=== PATIENT | female | born 1945 | race Caucasian/White ===

== ENCOUNTER → 2017-09-30 | Outpatient (CLI) | payer MEDICARE, BC | END | disposition home or self-care (01) | LOC: LABWHC1 09:33 | PROVIDERS: ATTEND Family Medicine | DX: E87.5 Hyperkalemia (principal) | CPT/HCPCS: 36415; 84132 ==

== ENCOUNTER → 2018-01-17 | Outpatient (CLI) | payer MEDICARE, BC ==
--- NOTE | 2018-01-17 14:08 | XR ---
EXAMINATION TYPE: XR thoracic spine complete DATE OF EXAM: 01/17/2018 CLINICAL HISTORY: pain TECHNIQUE: Frontal, lateral, and swimmer's view of thoracic spine are obtained. COMPARISON: None. FINDINGS: Severe scoliotic curvature convex to the right with rotatory component. Loss of height invo lving several lower thoracic segments likely chronic in nature although indeterminant. No bony destru ctive process seen. Moderate to severe degenerative disc space narrowing and spondylosis. IMPRESSION: Severe rotoscoliosis thoracic spine with loss of vertebral body height at multiple lower levels of indeterminate age. Superimposed degenerative changes noted as well.
== END | disposition home or self-care (01) ==
LOC: RADXRYALE 13:41
PROVIDERS: ATTEND Nurse Practitioner Family
DX: M41.84 Other forms of scoliosis, thoracic region (principal); M47.814 Spondylosis without myelopathy or radiculopathy, thoracic region; M25.512 Pain in left shoulder
CPT/HCPCS: 72072

== ENCOUNTER → 2018-09-18 | Outpatient (CLI) | payer MEDICARE, BC ==
--- NOTE | 2018-09-18 16:51 | BD ---
EXAMINATION TYPE: Axial Bone Density DATE OF EXAM: 09/18/2018 COMPARISON: 2014 CLINICAL HISTORY: disorder of bone Height: 4'11 10/11 Weight: 164 FRAX RISK QUESTIONS: Family History (Parent hip fracture): y Secondary Osteoporosis: RISK FACTORS HISTORY OF: Postmenopausal woman: y MEDICATIONS: Prednisone or other steroids: Thyroid Medications: Which medication: Levothyroxine How Lon years Additional Medications: blood pressure, arthritis, Additional History: EXAM MEASUREMENTS: Bone mineral densitometry was performed using the Selleroutlet System. Bone mineral density as measured about the Lumbar spine is: ----- L1-L4(G/cm2): 1.338 T Score Values are as follows: ----- L2: 1.9 ----- L3: 1.9 ----- L4: 1.1 ----- L1-L4:1.3 Bone mineral density has: Decreased -1.4% since study of: )06/02/2015 Bone mineral density about the R hip (g/cm2): 0.828 Bone mineral density about the L hip (g/cm2): 0.831 T Score values are as follows: -----R Neck: -1.5 -----L Neck: -1.5 -----R Total: -0.8 -----L Total: -1.3 Bone mineral density has: Increased 3.6% since study of: 06/02/2015 IMPRESSION: Osteopenia (T Score between -2.5 and -1). There is slightly increased risk of fracture and the patient may be considered for treatment. Re-Screen 2-5 years. NOTE: T-SCORE=SD OF THE YOUNG ADULT MEAN.
--- NOTE | 2018-09-19 10:49 | MM ---
Reason for exam: screening (asymptomatic). Last mammogram was performed 2 years and 1 month ago. History: Patient is postmenopausal. Family history of breast cancer in daughter at age 54. Benign excisional biopsy of the right breast. Physical Findings: A clinical breast exam by your physician is recommended on an annual basis and results should be correlated with mammographic findings. MG 3D Screening Mammo W/Cad Bilateral CC and MLO view(s) were taken. Prior study comparison: August 06, 2016, bilateral MG screening mammo w CAD. June 02, 2015, bilateral MG screening mammo w CAD. There are scattered fibroglandular densities. There are benign appearing round vascular calcifications bilaterally. There is no discrete abnormality. ASSESSMENT: Benign, BI-RAD 2 RECOMMENDATION: Routine screening mammogram of both breasts in 1 year.
== END | disposition home or self-care (01) ==
LOC: RADMAMWWP 14:09
PROVIDERS: ATTEND Family Medicine
DX: Z12.31 Encounter for screening mammogram for malignant neoplasm of breast (principal); M85.851 Other specified disorders of bone density and structure, right thigh; M85.852 Other specified disorders of bone density and structure, left thigh; M85.89 Other specified disorders of bone density and structure, multiple sites
CPT/HCPCS: 77063; 77067; 77080

== ENCOUNTER → 2020-07-11 | Outpatient (CLI) | payer MEDICARE ==
--- NOTE | 2020-07-14 08:50 | MM ---
Reason for exam: screening (asymptomatic). Last mammogram was performed 1 year and 10 months ago. History: Patient is postmenopausal. Family history of breast cancer in daughter at age 54. Benign excisional biopsy of the right breast. Took estrogen for 6 months beginning at age 48. Physical Findings: A clinical breast exam by your physician is recommended on an annual basis and results should be correlated with mammographic findings. MG 3D Screening Mammo W/Cad Bilateral CC and MLO view(s) were taken. Prior study comparison: September 18, 2018, bilateral MG 3d screening mammo w/cad. August 06, 2016, bilateral MG screening mammo w CAD. The breast tissue is heterogeneously dense. This may lower the sensitivity of mammography. Benign calcifications. There is chronic nodularity in the right breast, stable. No significant changes when compared with prior studies. ASSESSMENT: Benign, BI-RAD 2 RECOMMENDATION: Routine screening mammogram of both breasts in 1 year.
== END | disposition home or self-care (01) ==
LOC: RADMAMWWP 10:45
PROVIDERS: ATTEND Family Medicine
DX: Z12.31 Encounter for screening mammogram for malignant neoplasm of breast (principal)
CPT/HCPCS: 77063; 77067

== ENCOUNTER 2021-12-18 07:01 | Inpatient (IN) | payer MEDICARE ==
[~2021-12-18 07:01] MED LIST: HEPARIN SODIUM,PORCINE 10,000 UNIT in SODIUM CHLORIDE 0.9% 1,000 ML IRRIGATION PRN; HEPARIN SODIUM,PORCINE 2,500 UNIT in SODIUM CHLORIDE 0.9% 250 ML IRRIGATION PRN
--- NOTE | 2021-12-18 07:14 | ED ---
General Adult HPI - General Stated complaint: Chest Pain Time Seen by Provider: 12/18/21 07:02 Source: RN notes reviewed - History of Present Illness Initial comments: Patient is a 76-year-old female presented to the emergency room today with chief complaint of chest pain. Patient does admit that she felt some discomfort starting yesterday in the morning. Patient does admit that she took aspirin. As the day went on she actually felt better. Patient states that pain seemed to return late last night. She states she still felt this this morning. Did take some aspirin again. She took 324 aspirin early this morning and then when her son came over. Full dose 325 mg aspirin that she was taken. She states she has no pain currently. The patient denies any other complaints or any other symptoms at this time. Patient denies any recent fever, chills, shortness of breath, back pain, abdominal pain, nausea or vomiting, numbness or tingling, headaches or visual changes, or any other complaints. - Related Data Allergies Allergy/AdvReac Type Severity Reaction Status Date / Time No Known Allergies Allergy Verified 12/18/21 08:37 Review of Systems ROS Statement: Those systems with pertinent positive or pertinent negative responses have been documented in the HPI. ROS Other: All systems not noted in ROS Statement are negative. General Exam - General Exam Comments Initial Comments: General: The patient is awake and alert, in no distress, and does not appear acutely ill. Eye: , extra-ocular movements are intact. No nystagmus. There is normal conjunctiva bilaterally. No signs of icterus. Ears, nose, mouth and throat: There are moist mucous membranes and no oral lesions. Neck: The neck is supple, there is no tenderness or JVD. Cardiovascular: There is a regular rate and rhythm. No murmur, rub or gallop is appreciated. Respiratory: Lungs are clear to auscultation, respirations are non-labored, breath sounds are equal. No wheezes, stridor, rales, or rhonchi. Gastrointestinal: Soft nontender. Musculoskeletal: Normal ROM, no tenderness. Strength 5/5. Sensation intact. Radial Pulses equal bilaterally 2+. Neurological: A&O x 3. CN II-XII intact, There are no obvious motor or sensory deficits. Coordination appears grossly intact. Speech is normal. Skin: Skin is warm and dry and no rashes or lesions are noted. Psychiatric: Cooperative, appropriate mood & affect, normal judgment. Course Vital Signs 12/18/21 12/18/21 07:14 07:45 Temperature 98.1 F 98.1 F Pulse Rate 84 72 Respiratory 18 15 Rate Blood Pressure 179/84 169/112 O2 Sat by Pulse 100 100 Oximetry EKG Findings - EKG Comments: EKG Findings:: EKG performed: 705. Normal sinus rhythm at 90 bpm. SD interval 151. QRS 85. QT/QTc 352/399. No acute ST changes. Medical Decision Making - Medical Decision Making Patient's EKG shows no acute changes. Her troponin was elevated at 0.670. Creatinine 1.23. Patient chest pain-free here in emergency room. She did take aspirin prior to coming to the ER. Patient will be started on heparin drip. She'll be admitted for an STEMI. Case was discussed with admitting physician Dr. Villanueva will admit the patient with consult cardiology. - Lab Data Result diagrams: 12/18/21 08:03 12/18/21 08:03 Lab Results 12/18/21 12/18/21 12/18/21 Range/Units 07:36 08:03 08:03 WBC 8.7 (3.8-10.6) k/uL RBC 4.39 (3.80-5.40) m/uL Hgb 14.1 (11.4-16.0) gm/dL Hct 41.6 (34.0-46.0) % MCV 94.7 (80.0-100.0) fL MCH 32.1 (25.0-35.0) pg MCHC 33.9 (31.0-37.0) g/dL RDW 12.5 (11.5-15.5) % Plt Count 313 (150-450) k/uL MPV 7.2 Neutrophils % 55 % Lymphocytes % 32 % Monocytes % 8 % Eosinophils % 3 % Basophils % 1 % Neutrophils # 4.8 (1.3-7.7) k/uL Lymphocytes # 2.8 (1.0-4.8) k/uL Monocytes # 0.7 (0-1.0) k/uL Eosinophils # 0.3 (0-0.7) k/uL Basophils # 0.1 (0-0.2) k/uL Sodium 134 L (137-145) mmol/L Potassium 4.2 (3.5-5.1) mmol/L Chloride 103 (98-107) mmol/L Carbon Dioxide 23 (22-30) mmol/L Anion Gap 8 mmol/L BUN 23 H (7-17) mg/dL Creatinine 1.23 H (0.52-1.04) mg/dL Est GFR (CKD-EPI)AfAm 49 (>60 ml/min/1.73 sqM) Est GFR (CKD-EPI)NonAf 42 (>60 ml/min/1.73 sqM) Glucose 97 (74-99) mg/dL Calcium 9.6 (8.4-10.2) mg/dL Magnesium 1.7 (1.6-2.3) mg/dL Total Bilirubin 0.5 (0.2-1.3) mg/dL AST 39 H (14-36) U/L ALT 21 (4-34) U/L Alkaline Phosphatase 122 (38-126) U/L Troponin I 0.670 H* (0.000-0.034) ng/mL Total Protein 7.6 (6.3-8.2) g/dL Albumin 4.2 (3.5-5.0) g/dL Disposition Clinical Impression: NSTEMI (non-ST elevated myocardial infarction) Disposition: ADMITTED IP TO THIS HOSP Condition: Stable Is patient prescribed a controlled substance at d/c from ED?: No Referrals: Rosaura Steven DO [Primary Care Provider] - 1-2 days
[2021-12-18 08:12] LABS: Basophils # (A) 0.1 k/uL (0-0.2); Basophils % (A) 1 %; Eosinophils # (A) 0.3 k/uL (0-0.7); Eosinophils % (A) 3 %; HCT 41.6 % (34.0-46.0); HGB 14.1 gm/dL (11.4-16.0); Lymphocytes # (A) 2.8 k/uL (1.0-4.8); Lymphocytes % (A) 32 %; MCH 32.1 pg (25.0-35.0); MCHC 33.9 g/dL (31.0-37.0); MCV 94.7 fL (80.0-100.0); Mean Platelet Volume 7.2; Monocytes # (A) 0.7 k/uL (0-1.0); Monocytes % (A) 8 %; Neutrophils # (A) 4.8 k/uL (1.3-7.7); Neutrophils % (A) 55 %; Platelet Count 313 k/uL (150-450); RBC 4.39 m/uL (3.80-5.40); RDW 12.5 % (11.5-15.5); WBC 8.7 k/uL (3.8-10.6)
[2021-12-18 08:22] LABS: Albumin 4.2 g/dL (3.5-5.0); Calcium 9.6 mg/dL (8.4-10.2); Magnesium 1.7 mg/dL (1.6-2.3); Potassium 4.2 mmol/L (3.5-5.1); Total Bilirubin 0.5 mg/dL (0.2-1.3); Total Protein 7.6 g/dL (6.3-8.2)
[2021-12-18] MEDS ORDERED: HEPARIN SODIUM 1,000 UN/ML (10ML VL) IV PRN (08:28)
[2021-12-18] MEDS ORDERED: HEPARIN SODIUM 1,000 UN/ML (10ML VL) IV ONE (08:28)
[2021-12-18] MEDS ORDERED: ASPIRIN 81 MG PO STA (08:43)
[2021-12-18] MEDS ORDERED: HEPARIN SOD,PORK IN 0.45% NACL 25,000 UNIT in 0.45% NACL 1 250ML.BAG IV SCH (08:45)
[2021-12-18] MEDS ORDERED: NALOXONE 0.4 MG/ML 1 ML VIAL IV PRN (08:46)
[2021-12-18 08:49] LABS: INR 0.9 (<1.2); Partial Thromboplastin Time 23.1 sec (22.0-30.0)
--- NOTE | 2021-12-18 08:50 | XR ---
EXAMINATION TYPE: XR chest 2V DATE OF EXAM: 12/18/2021 COMPARISON: None available HISTORY: Chest pain TECHNIQUE: Frontal and lateral views of the chest are obtained. FINDINGS: Slightly prominent interstitial lung markings which could be related to COPD, please correlate clinic ally. Left basal linear pulmonary atelectasis. Grossly unremarkable lungs otherwise. No sizable pleural effusion or definite pneumothorax. No gross cardiomegaly. Dextroscoliosis of the lower thoracic spine. IMPRESSION: Possible COPD changes. Linear left basal pulmonary atelectasis. No acute pulmonary abnormality identi fied otherwise.
[2021-12-18] MEDS: METOPROLOL TARTRATE 25 MG TAB PO SCH ×2 (08:52→20:15)
[2021-12-18] MEDS ORDERED: NITROGLYCERIN OINT 1 INCH/GM PACKET TOPICAL SCH (11:30)
--- NOTE | 2021-12-18 12:00 | ECHOF ---
Referral Reason:chest pain, elevated troponin MEASUREMENTS -------- HEIGHT: 152.4 cm WEIGHT: 72.6 kg BP: RVIDd: 2.7 cm (< 3.3) IVSd: 1.1 cm (0.6 - 1.1) LVIDd: 4.2 cm (3.9 - 5.3) LVPWd: 1.0 cm (0.6 - 1.1) IVSs: 1.3 cm LVIDs: 3.0 cm LVPWs: 1.5 cm LA Diam: 3.2 cm (2.7 - 3.8) LAESV Index (A-L): 24.53 ml/m Ao Diam: 2.6 cm (2.0 - 3.7) AV Cusp: 1.7 cm (1.5 - 2.6) MV EXCURSION: 11.540 mm (> 18.000) MV EF SLOPE: 74 mm/s (70 - 150) EPSS: 0.6 cm MV E Konstantin: 1.24 m/s MV DecT: 281 ms MV A Konstantin: 1.11 m/s MV E/A Ratio: 1.12 RAP: 5.00 mmHg RVSP: 47.29 mmHg FINDINGS -------- Sinus rhythm. This was a technically good study. The left ventricular size is normal. There is borderline concentric left ventricular hypertrophy. Overall left ventricular systolic function is normal with, an EF between 55 - 60 %. The right ventricle is normal in size. Normal LA size by volume 22+/-6 ml/m2. The right atrium is normal in size. Interatrial and interventricular septum intact. The aortic valve is trileaflet, and appears structurally normal. No aortic stenosis or regurgitation. The mitral valve leaflets are mildly thickened. Mild mitral annular calcification present. Modera [id number] mitral regurgitation is present. Mild tricuspid regurgitation present. There is moderate pulmonary hypertension. The right ventric ular systolic pressure, as measured by Doppler, is 47.29mmHg. Trace/mild (physiologic) pulmonic regurgitation. The aortic root size is normal. Normal inferior vena cava with normal inspiratory collapse consistent with estimated right atrial pre ssure of 5 mmHg. There is no pericardial effusion. CONCLUSIONS -------- 1. The left ventricular size is normal. 2. There is borderline concentric left ventricular hypertrophy. 3. Overall left ventricular systolic function is normal with, an EF between 55 - 60 %. 4. The mitral valve leaflets are mildly thickened. 5. Mild mitral annular calcification present. 6. Dimcuvsf-ky-klxewz mitral regurgitation is present. 7. Mild tricuspid regurgitation present. 8. There is moderate pulmonary hypertension. 9. The right ventricular systolic pressure, as measured by Doppler, is 47.29mmHg. 10. Trace/mild (physiologic) pulmonic regurgitation. 11. There is no pericardial effusion. SIMONIZER: Lakeisha Morgan RDCS
[2021-12-18] MEDS: ATORVASTATIN 80 MG TAB PO SCH (12:39)
[2021-12-18] MEDS ORDERED: NITROGLYCERIN SL TABS 0.4 MG TAB SUBLINGUAL PRN ×2 (13:23→14:52)
[2021-12-18] MEDS ORDERED: ALPRAZolam 0.5 MG TAB PO PRN (13:23)
--- NOTE | 2021-12-18 13:24 | P.CRDCN ---
History of Present Illness History of present illness: HISTORY OF PRESENTING ILLNESS This is a pleasant 76-year-old female past medical history significant for hypothyroidism, GERD, bilateral feet chilblains, osteopenia. She does not follow with a astrobiologist. We have been asked to see in consultation for NSTEMI. Patient presents to the ER with chest discomfort. Last night, prior to bed, patient had midsternal chest pain, radiating to her right shoulder, she states she "did not feel well". She thought it was acid reflux she took meloxicam and aspirin and went to bed. She woke up 12/18 this morning around 4:00AM with 8/10 chest discomfort, describes it as heaviness, as if "someone is sitting on my chest". It radiated to her right shoulder. She felt some mild shortness of breath. Denies nausea, diaphoresis, lightheadedness, dizziness, syncope or near syncope. She presented to the emergency room by family for further evaluation. She denies any history of CAD, AR, stroke, diabetes, hypertension. She denies any tobacco use or alcohol use. She states her chest pain resolved on its own, did not take nitro. DIAGNOSTICS EKG reveals sinus rhythm, heart rate 90, PAC, some mild ST depression in V4 through V6. No prior EKG to compare. Telemetry tracings indicate sinus mechanism Chest xray linear left basilar pulmonary atelectasis. No acute pulmonary abnormality. No overt failure Laboratory reviewed, troponin elevated 0.6, sodium 134, potassium 4.2, BUN 23, serum creatinine 1.2, CBC unremarkable Current cardiac medications include nifedipine 30 mg daily the patient states she started taking due to bilateral feet chilblains REVIEW OF SYSTEMS At the time of my exam: CONSTITUTIONAL: Denies fever or chills. CARDIOVASCULAR: +chest pain, +shortness of breath,Denies orthopnea, PND or palpitations. RESPIRATORY: Denies cough. GASTROINTESTINAL: Denies abdominal pain, diarrhea, constipation, nausea or vomiting. MUSCULOSKELETAL: Denies myalgias. NEUROLOGIC: Denies numbness, tingling, headacbe or weakness. ENDOCRINE: Denies fatigue, weight change, polydipsia or polyurina. GENITOURINARY: Denies burning, hematuria or urgency with micturation. HEMATOLOGIC: Denies history of anemia or bleeding. PHYSICAL EXAMINATION Blood pressure 161/85, heart rate 70, afebrile, saturations 96% on room air CONSTITUTIONAL: No apparent distress. HEENT: Head is normocephalic. Pupils are equal, round. Sclerae anicteric. Mucous membranes of the mouth are moist. No JVD. No carotid bruit. CHEST EXAMINATION: Lungs are diminished bilaterally to auscultation. No chest wall tenderness is noted on palpation or with deep breathing. HEART EXAMINATION: Regular rate and rhythm. S1, S2 heard. No murmurs, gallops or rub. ABDOMEN: Soft, nontender. Positive bowel sounds. EXTREMITIES: 2+ peripheral pulses, no lower extremity edema and no calf ten derness. NEUROLOGIC EXAMINATION: Patient is awake, alert and oriented x3. ASSESSMENT NSTEMI Hypertension History of GERD History of hypothyroidism PLAN -Obtain 2D echocardiogram and doppler study to assess cardiac structure and function. -Continue IV Heparin, aspirin, statin, metoprolol tartrate -Nitropaste -We recommend cardiac catheterization at this time, patient is agreeable. -I have discussed the risks, benefits and alternative therapies for the above- mentioned procedure and for both sedation/analgesia as well as necessary blood product administration, if indicated, as they pertain to this patient. The patient has indicated understanding and acceptance of the risks and procedures discussed. Questions have been answered appropriately and she is agreeable to move forward with the above-stated procedure. -Further recommendations based on clinical course Nurse practitioner note has been reviewed by physician. Signing provider agrees with the documented findings, assessment, and plan of care. Past Medical History - Past Family History Father Additional Family Medical History / Comment(s): Heart problems. Mother Family Medical History: Congestive Heart Failure (CHF) Medications and Allergies Home Medications Medication Instructions Recorded Confirmed Type Calcium Carbonate [Tums] 500 mg PO QID PRN 12/18/21 12/18/21 History Calcium Citrate/Vitamin D3 1 tab PO SUTUTHSA 12/18/21 12/18/21 History [Citracal + D Maximum Caplet] Cholecalciferol [Vitamin D3 (25 25 mcg PO MOWEFR 12/18/21 12/18/21 History Mcg = 1000 Iu)] Docusate [Colace] 100 mg PO HS 12/18/21 12/18/21 History Renetta-C 1 tab PO MOWEFR 12/18/21 12/18/21 History Levothyroxine Sodium [Synthroid] 50 mcg PO DAILY@0600 12/18/21 12/18/21 History Meloxicam [Mobic] 7.5 mg PO DAILY 12/18/21 12/18/21 History NIFEdipine [NIFEdipine ER] 30 mg PO DAILY 12/18/21 12/18/21 History Pantoprazole [Protonix] 40 mg PO DAILY 12/18/21 12/18/21 History traMADol HCL/ACETAMINOPHEN 1 tab PO BID PRN 12/18/21 12/18/21 History [Ultracet 37.5-325] Allergies Allergy/AdvReac Type Severity Reaction Status Date / Time No Known Allergies Allergy Verified 12/18/21 09:27 Physical Exam Vitals: Vital Signs Temp Pulse Resp BP Pulse Ox 12/18/21 08:50 68 18 172/80 99 12/18/21 07:45 98.1 F 72 15 169/112 100 12/18/21 07:14 98.1 F 84 18 179/84 100 Intake and Output 12/17/21 12/18/21 12/18/21 22:59 06:59 14:59 Other: Weight 72.575 kg Results 12/18/21 08:03 12/18/21 08:03 Cardiac Enzymes 12/18/21 12/18/21 Range/Units 07:36 08:03 AST 39 H (14-36) U/L Troponin I 0.670 H* (0.000-0.034) ng/mL Coagulation 12/18/21 Range/Units 08:03 PT 10.0 (9.0-12.0) sec APTT 23.1 (22.0-30.0) sec CBC 12/18/21 Range/Units 08:03 WBC 8.7 (3.8-10.6) k/uL RBC 4.39 (3.80-5.40) m/uL Hgb 14.1 (11.4-16.0) gm/dL Hct 41.6 (34.0-46.0) % Plt Count 313 (150-450) k/uL Comprehensive Metabolic Panel 12/18/21 Range/Units 08:03 Sodium 134 L (137-145) mmol/L Potassium 4.2 (3.5-5.1) mmol/L Chloride 103 (98-107) mmol/L Carbon Dioxide 23 (22-30) mmol/L BUN 23 H (7-17) mg/dL Creatinine 1.23 H (0.52-1.04) mg/dL Glucose 97 (74-99) mg/dL Calcium 9.6 (8.4-10.2) mg/dL AST 39 H (14-36) U/L ALT 21 (4-34) U/L Alkaline Phosphatase 122 (38-126) U/L Total Protein 7.6 (6.3-8.2) g/dL Albumin 4.2 (3.5-5.0) g/dL Current Medications Generic Name Dose Route Start Last Admin Trade Name Freq PRN Reason Stop Dose Admin Aspirin 81 mg 12/19/21 09:00 Aspirin 81 Mg PO DAILY NATY Heparin Sodium (Porcine) 0 unit 12/18/21 08:28 Heparin Sodium 1,000 Un/Ml (10ml Vl) IV PER PROTOCOL PRN Low PTT Protocol Heparin Sodium/Sodium Chloride 250 mls @ 8.709 mls/hr 12/18/21 08:45 12/18/21 08:52 25,000 unit/ Sodium Chloride IV 12 units/kg/hr .Q24H NATY 8.709 mls/hr Administration Protocol 12 UNITS/KG/HR Sodium Chloride 1,000 mls @ 20 mls/hr 12/18/21 09:00 Saline 0.9% IV .Q24H NATY Metoprolol Tartrate 25 mg 12/18/21 09:00 12/18/21 08:52 Metoprolol Tartrate 25 Mg Tab PO 25 mg BID NATY Administration Naloxone HCl 0.2 mg 12/18/21 08:46 Naloxone 0.4 Mg/Ml 1 Ml Vial IV Q2M PRN Opioid Reversal Intake and Output 12/17/21 12/18/21 12/18/21 22:59 06:59 14:59 Other: Weight 72.575 kg Patient Weight 12/19/21 06:59 Weight 72.575 kg 12/18/21 08:03 12/18/21 08:03
[2021-12-18] MEDS ORDERED: fentaNYL (PF) 50 MCG/ML 2 ML AMP IV ONE (13:46)
[2021-12-18] MEDS: MIDAZOLAM 2 MG/2 ML VIAL IV ONE ×2 (13:46→14:24)
[2021-12-18] MEDS ORDERED: LIDOCAINE 1% INJ 10MG/ML (20 ML MDV) SQ ONE (13:47)
[2021-12-18] MEDS ORDERED: VERAPAMIL SYRINGE (5 MG/10 ML) INTRAARTER ONE (13:49)
[2021-12-18] MEDS: HEPARIN SODIUM 1,000 UN/ML (10ML VL) IV ONE ×2 (13:55→14:44)
[2021-12-18] MEDS ORDERED: IV FLUID CONTINUATION 1,000 ML IV ONE ×2 (13:59)
[2021-12-18] MEDS ORDERED: NITROGLYCERIN 1000MCG/10ML SYRINGE INTRACORON ONE (14:32)
[2021-12-18] MEDS ORDERED: IOPAMIDOL-370 125ML BTL INJ ONE (14:41)
[2021-12-18] MEDS ORDERED: IOPAMIDOL-370 100ML BTL INJ ONE (14:45)
[2021-12-18] MEDS ORDERED: RX INFO: IV CONTRAST WAS GIVEN 1 EACH MISC MISCELLANE PRN (14:52)
[2021-12-18] MEDS ORDERED: MAG HYDROX/AL HYDROX/SIMETH 30 ML CUP PO PRN (14:52)
[2021-12-18] MEDS ORDERED: ZOLPIDEM 5 MG TAB PO PRN (14:52)
[2021-12-18] MEDS ORDERED: ATROPINE SULFATE 0.1 MG/ML 10ML SYRINGE IV PRN (14:52)
[2021-12-18] MEDS ORDERED: SODIUM CHLORIDE 0.9% 1,000 ML in EMPTY BAG 1 BAG IV SCH (15:00)
--- NOTE | 2021-12-18 15:00 | P.CARDCATH ---
Date of Procedure: 12/18/21 Description of Procedure: PERCUTANEOUS TRANSLUMINAL CORONARY ANGIOPLASTY CLINICAL INFORMATION: The patient is a 76-year-old female with known history of hypertension who presented with symptoms of chest discomfort and evidence of non-STEMI with troponin elevation. She was evaluated by Dr. Adamson and underwent cardiac catheterization was found to have critical stenosis in the proximal left circumflex, OM1 as well as disease in the LAD, diagonal branch and the RCA. Discussions regarding multiple vessel stenting versus CABG were discussed with the patient and the decision was made to proceed with stenting. The procedure as well as the risks and the complications were discussed and she was in agreem ent to proceed. PROCEDURE: A 6 Hebrew L3 and a half guiding catheter was introduced into the system. After cannulating the left main, a 0.014 balanced medium J-wire was advanced across the lesion and positioned distally. Following that a 2.5 x 12 mm Treck balloon was advanced and when inflammation at 8 lorne was done. Following that a 2.5 x 33 mm Xience ryanne point stent was deployed. It was dilated at 16, following that a 3.25 x 18 mm Xience ryanne point stent deployed and postdilated at 16 lorne proximally the first one. Inflations the proximal segment of the first stent were done with the 3.25 balloon.. After the last inflation, after appropriate wait, the balloon and the guidewire were withdrawn back into the guiding catheter. Images were obtained and repeated. Those images reveal stable successful stenting. At that point, the guiding catheter, the balloon, and guidewire were removed. The sheath was removed. Hemostasis was obtained with deployment of the TR band. There were no immediate complications. The patient was returned to the room in stable condition. Of note, the patient received 1000 units of heparin as well as Plavix. Her ACT was followed. She had no significant chest discomfort or EKG changes. RESULTS: Successful stenting of the proximal left circumflex and first obtuse marginal branch with reduction of stenosis from 99 % to 0 %. RECOMMENDATIONS: The patient will be continued on dual antiplatelet treatment for one year. She will be followed closely regarding the decision to proceed with stenting and angioplasty of the diagonal and LAD. The findings and recommendations were discussed with the patient and her family and they were in full understanding and agreement. Duration of procedure 23 minutes.
[2021-12-18] MEDS: SODIUM CHLORIDE 0.9% 1,000 ML IV SCH (15:16)
--- NOTE | 2021-12-18 15:16 | CC ---
CARDIAC CATHETERIZATION REPORT INDICATION: Acute non ST-segment elevation MN. PROCEDURE NOTE: After obtaining informed consent, left heart catheterization and coronary angiogram are performed via the right radial artery using standard Joao catheters. Patient tolerated the procedure well without any obvious immediate complications. Patient received 2500 units of IV heparin and 5 mg of verapamil as per protocol. I initially obtained right radial artery access using a micropuncture needle. Under fluoroscopic guidance, wires and catheters were floated into the ascending aorta where they were exchanged and procedure was completed. She received moderate conscious sedation. Total sedation time was 19 minutes. HEMODYNAMICS: Left ventricular end-diastolic pressure is 16 mm. There is no significant gradient across the aortic valve. LEFT VENTRICULOGRAM: Not performed. ANGIOGRAPHIC DATA: RIGHT CORONARY ARTERY: Right coronary artery is a large dominant vessel, shows 2 focal areas of stenosis involving the proximal and mid RCA which seemed to be a 50-60 percent on the proximal and 60-70 percent on the mid. LEFT ANTERIOR DESCENDING CORONARY ARTERY: LAD shows a long area of stenosis in its midportion and a large diagonal branch shows a 70-80 percent stenosis. CIRCUMFLEX CORONARY ARTERY: Circumflex coronary artery shows a focal 95% stenosis in the proximal part and the OM branch shows a 70% stenosis. CONCLUSIONS: Three-vessel coronary artery disease as described above. I believe the lesion responsible for myocardial infarction chest pain is a lesion in the circ. We reviewed angiographic data with Dr. Fernandez, the on-call front end mechanic. I had a long discussion with the patient and discussed the treatment options including bypass surgery and multivessel angioplasty. The patient and I have chosen for multivessel angioplasty at this time. We will fix circumflex coronary artery and OM at this time and bring her back and do LAD and diag angioplasty and maybe treat the right coronary artery medically and see how she does. MMODL / IJN: [id number] /
--- NOTE | 2021-12-18 15:16 | LTR ---
DATE OF SERVICE: 12/18/2021 Dear Rosaura: I performed cardiac catheterization on Candice Conner. A detailed cardiac catheterization is enclosed for your records. In brief, she has multivessel coronary artery disease and will undergo multivessel angioplasty. Thank you for giving us the privilege to participate in the care of this lady. Sincerely, CHARLIE / YAMELN: [id number] /
[2021-12-18] MEDS: SODIUM CHLORIDE 0.9% 1,000 ML in EMPTY BAG 1 BAG IV SCH (15:17)
--- NOTE | 2021-12-18 20:09 | P.HPIM ---
History of Present Illness This is a pleasant 76 years old female with no significant past medical history who presents because of chest pain. She is a patient of Dr. Bourne She presents with right-sided chest pain radiating to the right shoulder which happened last night, relieved temporarily with antiacids and aspirating however inferiorly morning it recurred about 5-6/10 in severity. Like pressure, associated with some difficulty breathing but no nausea vomiting or diarrhea. No urinary complaints, no headache or weakness or numbness. Patient took 2 tablets of aspirin last night and 1 tablet of 325 mg with EMS. Her chest pain slightly subsided now She denies smoking, alcohol or illicit drugs Vitas looks stable, blood pressure elevated 179/84 and 169/112 Labs show an unremarkable CBC, BMP with slightly elevated creatinine 1.2 which is looks at her baseline of 1.1-1.3. Chest x-ray: Reviewed by myself showing no acute process or cardiomegaly, pending final report -Emergency room patient was started on heparin drip and cardiology team con sulted Review of Systems CONSTITUTIONAL: No fever, no malaise, no fatigue. HEENT: No recent visual problems or hearing problems. Denied any sore throat. CARDIOVASCULAR: No orthopnea, PND, no palpitations, no syncope. PULMONARY: No shortness of breath, no cough, no hemoptysis. GASTROINTESTINAL: No diarrhea, no nausea, no vomiting, no abdominal pain. Normoactive bowel sounds. NEUROLOGICAL: No headaches, no weakness, no numbness. HEMATOLOGICAL: Denies any bleeding or petechiae. GENITOURINARY: Denies any burning micturition, frequency, or urgency. MUSCULOSKELETAL/RHEUMATOLOGICAL: Denies any joint pain, swelling, or any muscle pain. ENDOCRINE: Denies any polyuria or polydipsia. Past Medical History - Past Family History Father Additional Family Medical History / Comment(s): Heart problems. Mother Family Medical History: Congestive Heart Failure (CHF) Medications and Allergies Home Medications Medication Instructions Recorded Confirmed Type Calcium Carbonate [Tums] 500 mg PO QID PRN 12/18/21 12/18/21 History Calcium Citrate/Vitamin D3 1 tab PO SUTUTHSA 12/18/21 12/18/21 History [Citracal + D Maximum Caplet] Cholecalciferol [Vitamin D3 (25 25 mcg PO MOWEFR 12/18/21 12/18/21 History Mcg = 1000 Iu)] Docusate [Colace] 100 mg PO HS 12/18/21 12/18/21 History Renetta-C 1 tab PO MOWEFR 12/18/21 12/18/21 History Levothyroxine Sodium [Synthroid] 50 mcg PO DAILY@0600 12/18/21 12/18/21 History Meloxicam [Mobic] 7.5 mg PO DAILY 12/18/21 12/18/21 History NIFEdipine [NIFEdipine ER] 30 mg PO DAILY 12/18/21 12/18/21 History Pantoprazole [Protonix] 40 mg PO DAILY 12/18/21 12/18/21 History traMADol HCL/ACETAMINOPHEN 1 tab PO BID PRN 12/18/21 12/18/21 History [Ultracet 37.5-325] Allergies Allergy/AdvReac Type Severity Reaction Status Date / Time No Known Allergies Allergy Verified 12/18/21 09:27 Physical Exam Vitals: Vital Signs Temp Pulse Resp BP Pulse Ox 12/18/21 07:45 98.1 F 72 15 169/112 100 12/18/21 07:14 98.1 F 84 18 179/84 100 Intake and Output 12/17/21 12/18/21 12/18/21 22:59 06:59 14:59 Other: Weight 72.575 kg GENERAL: The patient is alert and oriented x3, not in any acute distress. Well developed, well nourished. HEENT: Pupils are round and equally reacting to light. EOMI. No scleral icterus. No conjunctival pallor. Normocephalic, atraumatic. No pharyngeal erythema. No thyromegaly. CARDIOVASCULAR: S1 and S2 present. No murmurs, rubs, or gallops. PULMONARY: Chest is clear to auscultation, no wheezing or crackles. ABDOMEN: Soft, nontender, nondistended, normoactive bowel sounds. No palpable organomegaly. MUSCULOSKELETAL: No joint swelling or deformity. EXTREMITIES: No cyanosis, clubbing, or pedal edema. NEUROLOGICAL: Gross neurological examination did not reveal any focal deficits. SKIN: No rashes. No petechiae Results CBC & Chem 7: 12/18/21 08:03 12/18/21 08:03 Labs: Abnormal Lab Results - Last 24 Hours (Table) 12/18/21 12/18/21 Range/Units 07:36 08:03 Sodium 134 L (137-145) mmol/L BUN 23 H (7-17) mg/dL Creatinine 1.23 H (0.52-1.04) mg/dL AST 39 H (14-36) U/L Troponin I 0.670 H* (0.000-0.034) ng/mL Assessment and Plan Assessment: Chest pain was slightly elevated troponin suspicious for non-STEMI hypertension, new onset CKD stage III, most likely hypertensive nephropathy. Plan: This is a pleasant 76 years old female who presents with chest pain. Continue with heparin drip Cardiology consult Add metoprolol 25 mg twice a day as well as aspirin Labs and medication were reviewed.. Continue same treatment. Continue with symptomatic treatment. Resume home medication. Monitor lytes and vitals. DVT and GI prophylaxis. Further recommendations depends on the clinical course of the patient DVT prophylaxis: Subcutaneous heparin GI Prophylaxis: Pepcid PT/OT: Pending Prognosis is guarded
[2021-12-18] MEDS: ALPRAZolam 0.25 MG TAB PO PRN (22:49)
[2021-12-19] MEDS: SODIUM CHLORIDE 0.9% 1,000 ML in EMPTY BAG 1 BAG IV SCH ×2 (03:13→17:11)
[2021-12-19 08:11] LABS: Basophils # (A) 0.1 k/uL (0-0.2); Basophils % (A) 1 %; Eosinophils # (A) 0.3 k/uL (0-0.7); Eosinophils % (A) 5 %; HGB 13.2 gm/dL (11.4-16.0); Lymphocytes # (A) 1.8 k/uL (1.0-4.8); Lymphocytes % (A) 28 %; MCH 31.7 pg (25.0-35.0); MCHC 32.3 g/dL (31.0-37.0); MCV 98.1 fL (80.0-100.0); Mean Platelet Volume 7.3; Monocytes # (A) 0.4 k/uL (0-1.0); Monocytes % (A) 6 %; Neutrophils # (A) 3.5 k/uL (1.3-7.7); Neutrophils % (A) 56 %; Platelet Count 292 k/uL (150-450); RBC 4.18 m/uL (3.80-5.40); RDW 13.3 % (11.5-15.5); WBC 6.3 k/uL (3.8-10.6)
[2021-12-19 08:23] LABS: Calcium 9.2 mg/dL (8.4-10.2); Potassium 4.5 mmol/L (3.5-5.1)
[2021-12-19 08:28] LABS: INR 0.9 (<1.2); Prothrombin Time 10.1 sec (9.0-12.0)
[2021-12-19] MEDS: SODIUM CHLORIDE 0.9% 1,000 ML IV SCH (09:11)
[2021-12-19] MEDS: ATORVASTATIN 80 MG TAB PO SCH (09:11)
[2021-12-19] MEDS: METOPROLOL TARTRATE 25 MG TAB PO SCH ×2 (09:11→20:16)
[2021-12-19] MEDS: CLOPIDOGREL 75 MG TAB PO SCH (09:11)
[2021-12-19] MEDS: ASPIRIN 81 MG PO SCH (09:11)
[2021-12-19] MEDS ORDERED: traMADol-ACETAMINOP 37.5-325MG 1 EACH TAB PO PRN (09:19)
--- NOTE | 2021-12-19 11:30 | P.PN ---
Subjective Patient presented to hospital with acute non-ST segment elevation TN. She underwent cardiac catheterization by me that revealed severe obstructive disease involving circumflex coronary artery and LAD with intermediate disease involving right coronary artery that we opted to treat with multivessel angioplasty. She underwent angioplasty with stent placement of [place] circumflex coronary artery and the OM branch. She will undergo angioplasty of the LAD and back on Tuesday. She is chest pain-free hemodynamically stable and is free of symptoms. Echocardiogram shows normal LV function. On exam comfortable at rest vital signs are stable there is a jugular venous distention chest exam reveals good air entry bilaterally heart exam vessel secon d heart sounds no gallop no murmur no rub abdomen is soft nontender exams extremities did not will any edema per for pulses are felt right radial artery access site shows ecchymosis pulses are normal Labs show a Lisseth of 21 creatinine is 1.2 potassium is 4.5 hemoglobin is 13.2 Acute non-ST segment elevation TN status post cath and angioplasty Patient will continue current medications we will schedule her for LAD angioplasty on Tuesday Objective - Vital Signs Vital signs: Vital Signs Temp 98.1 F 12/19/21 09:00 Pulse 58 L 12/19/21 09:00 Resp 16 12/19/21 09:00 BP 130/63 12/19/21 09:00 Pulse Ox 96 12/19/21 09:00 Intake & Output 12/18/21 12/19/21 12/19/21 18:59 06:59 18:59 Intake Total 814.514 240 118 Balance 814.514 240 118 Weight 72.575 kg 67 kg 67 kg Intake: IV 350 Intake, IV Titration 104.514 Amount Heparin Sod,Pork in 0.45% 32.514 NaCl 25,000 unit In 0.45 % NaCl 1 250ml.bag @ 12 UNITS/KG/HR 8.709 mls/hr IV .Q24H [facility] Rx#: [id number] Sodium Chloride 0.9% 1, 72 000 ml In Empty Bag 1 bag @ 1 ML/KG/HR 72.575 mls/ hr IV .[id number] [facility] Rx#: [id number] Oral 360 240 118 Other: Voiding Method Toilet Toilet # Voids 1 1 - Labs CBC & Chem 7: 12/19/21 07:55 12/19/21 07:55 Labs: Abnormal Lab Results - Last 24 Hours (Table) 12/18/21 12/18/21 12/18/21 Range/Units 11:07 15:29 15:29 APTT 120.7 H* (22.0-30.0) sec BUN (7-17) mg/dL Creatinine (0.52-1.04) mg/dL Glucose (74-99) mg/dL Troponin I 1.440 H* 2.430 H* (0.000-0.034) ng/mL 12/19/21 Range/Units 07:55 APTT (22.0-30.0) sec BUN 21 H (7-17) mg/dL Creatinine 1.25 H (0.52-1.04) mg/dL Glucose 150 H (74-99) mg/dL Troponin I (0.000-0.034) ng/mL
[2021-12-19] MEDS ORDERED: LEVOTHYROXINE 50 MCG TAB PO ONE (12:36)
[2021-12-19] MEDS: CALCIUM CARB-VIT D 500 MG-5 MCG TAB PO SCH (13:09)
--- NOTE | 2021-12-19 18:52 | P.PN ---
Subjective This is a pleasant 76 years old female with no significant past medical history who presents because of chest pain. She is a patient of Dr. Bourne She presents with right-sided chest pain radiating to the right shoulder which happened last night, relieved temporarily with antiacids and aspirating however inferiorly morning it recurred about 5-6/10 in severity. Like pressure, associated with some difficulty breathing but no nausea vomiting or diarrhea. No urinary complaints, no headache or weakness or numbness. Patient took 2 tablets of aspirin last night and 1 tablet of 325 mg with EMS. Her chest pain slightly subsided now She denies smoking, alcohol or illicit drugs Vitas looks stable, blood pressure elevated 179/84 and 169/112 Labs show an unremarkable CBC, BMP with slightly elevated creatinine 1.2 which is looks at her baseline of 1.1-1.3. Chest x-ray: Reviewed by myself showing no acute process or cardiomegaly, pending final report -Emergency room patient was started on heparin drip and cardiology team consulted 12/19/2021 Patient is awake and alert, looks comfortable, no more chest pain, she status post post op day #1, she had PCI with stent placement into her left circumflex artery and first obtuse marginal branch. Also she is planned to undergo further stenting to her LAD on Tuesday. We will keep monitoring closely with tool honing machine set up operator team on the case Objective - Vital Signs Vital signs: Vital Signs Temp 98.1 F 12/19/21 09:00 Pulse 68 12/19/21 11:30 Resp 16 12/19/21 11:30 BP 138/66 12/19/21 11:30 Pulse Ox 94 L 12/19/21 11:30 Intake & Output 12/18/21 12/19/21 12/19/21 18:59 06:59 18:59 Intake Total 814.514 240 118 Balance 814.514 240 118 Weight 72.575 kg 67 kg 67 kg Intake: IV 350 Intake, IV Titration 104.514 Amount Heparin Sod,Pork in 0.45% 32.514 NaCl 25,000 unit In 0.45 % NaCl 1 250ml.bag @ 12 UNITS/KG/HR 8.709 mls/hr IV .Q24H [facility] Rx#: [id number] Sodium Chloride 0.9% 1, 72 000 ml In Empty Bag 1 bag @ 1 ML/KG/HR 72.575 mls/ hr IV .[id number] [facility] Rx#: [id number] Oral 360 240 118 Other: Voiding Method Toilet Toilet # Voids 1 1 - Exam GENERAL: The patient is alert and oriented x3, not in any acute distress. Well developed, well nourished. HEENT: Pupils are round and equally reacting to light. EOMI. No scleral icterus. No conjunctival pallor. Normocephalic, atraumatic. No pharyngeal erythema. No thyromegaly. CARDIOVASCULAR: S1 and S2 present. No murmurs, rubs, or gallops. PULMONARY: Chest is clear to auscultation, no wheezing or crackles. ABDOMEN: Soft, nontender, nondistended, normoactive bowel sounds. No palpable organomegaly. MUSCULOSKELETAL: No joint swelling or deformity. EXTREMITIES: No cyanosis, clubbing, or pedal edema. NEUROLOGICAL: Gross neurological examination did not reveal any focal deficits. SKIN: No rashes. no petechiae. - Labs CBC & Chem 7: 12/19/21 07:55 12/19/21 07:55 Labs: Abnormal Lab Results - Last 24 Hours (Table) 12/18/21 12/18/21 12/19/21 Range/Units 15:29 15:29 07:55 APTT 120.7 H* (22.0-30.0) sec BUN 21 H (7-17) mg/dL Creatinine 1.25 H (0.52-1.04) mg/dL Glucose 150 H (74-99) mg/dL Troponin I 2.430 H* (0.000-0.034) ng/mL Assessment and Plan Assessment: non-STEMI, status post PCI to left circumflex artery and first obtuse marginal branch. With plan for a PCI to LAD on Tuesday hypertension, new onset CKD stage III, most likely hypertensive nephropathy. Plan: This is a pleasant 76 years old female who presents with chest pain. Continue with heparin drip Cardiology consult Add metoprolol 25 mg twice a day as well as aspirin Labs and medication were reviewed.. Continue same treatment. Continue with symptomatic treatment. Resume home medication. Monitor lytes and vitals. DVT and GI prophylaxis. Further recommendations depends on the clinical course of the patient DVT prophylaxis: Subcutaneous heparin GI Prophylaxis: Pepcid PT/OT: Pending Prognosis is guarded
[2021-12-19] MEDS: DOCUSATE 100 MG CAP PO SCH (20:16)
[2021-12-19] MEDS: ALPRAZolam 0.25 MG TAB PO PRN (22:21)
[2021-12-20] MEDS: SODIUM CHLORIDE 0.9% 1,000 ML in EMPTY BAG 1 BAG IV SCH (04:29)
[2021-12-20] MEDS: LEVOTHYROXINE 50 MCG TAB PO SCH (06:18)
[2021-12-20 08:32] LABS: Calcium 9.8 mg/dL (8.4-10.2); Potassium 5.1 mmol/L (3.5-5.1)
[2021-12-20] MEDS: CLOPIDOGREL 75 MG TAB PO SCH (08:45)
[2021-12-20] MEDS: ATORVASTATIN 80 MG TAB PO SCH ×2 (08:45→11:26)
[2021-12-20] MEDS: CALCIUM CARB-VIT D 500 MG-5 MCG TAB PO SCH (08:45)
[2021-12-20] MEDS: ASPIRIN 81 MG PO SCH ×2 (08:45→11:26)
[2021-12-20] MEDS: METOPROLOL TARTRATE 25 MG TAB PO SCH ×2 (08:45→20:35)
[2021-12-20] MEDS ORDERED: ALPRAZolam 0.5 MG TAB PO PRN (11:21)
[2021-12-20] MEDS ORDERED: NITROGLYCERIN SL TABS 0.4 MG TAB SUBLINGUAL PRN (11:21)
[2021-12-20] MEDS ORDERED: ALPRAZolam 0.25 MG TAB PO PRN (11:21)
[2021-12-20] MEDS ORDERED: LEVOTHYROXINE 50 MCG TAB PO ONE (12:27)
[2021-12-20] MEDS: amLODIPine 5 MG TAB PO SCH (12:54)
--- NOTE | 2021-12-20 13:49 | PN ---
PROGRESS NOTE Candice is a 76-year-old lady who is admitted to hospital with non ST segment elevation MS. Underwent cardiac catheterization and angioplasty of circumflex coronary artery. She is doing well and is free of cardiac symptoms. EXAM: VITAL SIGNS: Afebrile. Vital signs stable. There is no jugular venous distention. Chest exam reveals good air entry bilaterally. Heart exam reveals first and second heart sounds. No gallop. No murmur. Abdomen is soft, nontender. Examination of extremities did not reveal any edema. Peripheral pulses are palpable. Radial artery access site is free of bleeding. LABS: Labs show that her creatinine was 1.23 on admission, went up to 1.25 yesterday and it is 1.28 today. ASSESSMENT AND PLAN: Non ST-segment elevation myocardial infarction status post catheterization and angioplasty. Patient needs staged angioplasty of LAD and diagonal branch. I am going to start the patient back on IV fluids and recheck electrolytes tomorrow. If the renal functions are stable or getting better, she will proceed with angioplasty of the LAD and the diagonal. If not, we will treat her with medical therapy and consider the LAD angioplasty at a later time. MMODL / IJN: [id number] /
[2021-12-20] MEDS: DOCUSATE 100 MG CAP PO SCH (20:17)
--- NOTE | 2021-12-20 20:17 | P.PN ---
Subjective This is a pleasant 76 years old female with no significant past medical history who presents because of chest pain. She is a patient of Dr. Bourne She presents with right-sided chest pain radiating to the right shoulder which happened last night, relieved temporarily with antiacids and aspirating however inferiorly morning it recurred about 5-6/10 in severity. Like pressure, associated with some difficulty breathing but no nausea vomiting or diarrhea. No urinary complaints, no headache or weakness or numbness. Patient took 2 tablets of aspirin last night and 1 tablet of 325 mg with EMS. Her chest pain slightly subsided now She denies smoking, alcohol or illicit drugs Vitas looks stable, blood pressure elevated 179/84 and 169/112 Labs show an unremarkable CBC, BMP with slightly elevated creatinine 1.2 which is looks at her baseline of 1.1-1.3. Chest x-ray: Reviewed by myself showing no acute process or cardiomegaly, pending final report -Emergency room patient was started on heparin drip and cardiology team consulted 12/19/2021 Patient is awake and alert, looks comfortable, no more chest pain, she status post post op day #1, she had PCI with stent placement into her left circumflex artery and first obtuse marginal branch. Also she is planned to undergo further stenting to her LAD on Tuesday. We will keep monitoring closely with finance accounting internship team on the case 12/20/2021 patient here with non-STEMI, her chest pain improved after stent placement in the circumflex and obtuse branch, she still needs another PCI to LAD IV fluids started and check creatinine tomorrow for possible cardiac cath in the morning Creatinine is stable today at baseline of 1.2 Objective - Vital Signs Vital signs: Vital Signs Temp 97.8 F 12/20/21 04:00 Pulse 58 L 12/20/21 04:00 Resp 16 12/20/21 04:00 BP 121/66 12/20/21 04:00 Pulse Ox 97 12/20/21 07:43 Intake & Output 12/19/21 12/20/21 12/20/21 17:59 06:59 18:59 Intake Total 120 Balance 120 Weight Intake: Oral 120 Other: Voiding Method # Voids - Exam GENERAL: The patient is alert and oriented x3, not in any acute distress. Well developed, well nourished. HEENT: Pupils are round and equally reacting to light. EOMI. No scleral icterus. No conjunctival pallor. Normocephalic, atraumatic. No pharyngeal erythema. No thyromegaly. CARDIOVASCULAR: S1 and S2 present. No murmurs, rubs, or gallops. PULMONARY: Chest is clear to auscultation, no wheezing or crackles. ABDOMEN: Soft, nontender, nondistended, normoactive bowel sounds. No palpable organomegaly. MUSCULOSKELETAL: No joint swelling or deformity. EXTREMITIES: No cyanosis, clubbing, or pedal edema. NEUROLOGICAL: Gross neurological examination did not reveal any focal deficits. SKIN: No rashes. no petechiae. - Labs CBC & Chem 7: 12/19/21 07:55 12/20/21 07:54 Labs: Abnormal Lab Results - Last 24 Hours (Table) 12/20/21 Range/Units 07:54 Sodium 134 L (137-145) mmol/L BUN 23 H (7-17) mg/dL Creatinine 1.28 H (0.52-1.04) mg/dL Glucose 101 H (74-99) mg/dL Assessment and Plan Assessment: non-STEMI, status post PCI to left circumflex artery and first obtuse marginal branch. With plan for a PCI to LAD on Tuesday hypertension, new onset CKD stage III, most likely hypertensive nephropathy. Plan: This is a pleasant 76 years old female who presents with chest pain. Planned for cardiac cath tomorrow for her LAD disease Cardiology consult Continue with metoprolol 25 mg twice a day as well as aspirin Labs and medication were reviewed.. Continue same treatment. Continue with symptomatic treatment. Resume home medication. Monitor lytes and vitals. DVT and GI prophylaxis. Further recommendations depends on the clinical course of the patient DVT prophylaxis: Subcutaneous heparin GI Prophylaxis: Pepcid
[2021-12-20] MEDS: SODIUM CHLORIDE 0.9% 1,000 ML IV SCH (20:35)
[2021-12-20] MEDS: HEPARIN SODIUM,PORCINE/PF 5,000 UNIT/0.5 ML SYRINGE SQ SCH (20:35)
[2021-12-20] MEDS ORDERED: FAMOTIDINE 20 MG/2 ML VIAL IV SCH ×2 (21:00)
[2021-12-20] MEDS: ALPRAZolam 0.25 MG TAB PO PRN (23:17)
[2021-12-21 04:46] LABS: Glucose,Whole Blood 94 mg/dL (75-99)
[2021-12-21] MEDS ORDERED: ASPIRIN 325 MG TAB PO ONE (05:00)
[2021-12-21] MEDS ORDERED: ATORVASTATIN 80 MG TAB PO ONE (05:00)
[2021-12-21] MEDS: amLODIPine 5 MG TAB PO SCH (05:26)
[2021-12-21] MEDS: LEVOTHYROXINE 50 MCG TAB PO SCH (05:26)
[2021-12-21] MEDS: HEPARIN SODIUM,PORCINE/PF 5,000 UNIT/0.5 ML SYRINGE SQ SCH (05:27)
[2021-12-21] MEDS: CLOPIDOGREL 75 MG TAB PO SCH (05:27)
[2021-12-21] MEDS: METOPROLOL TARTRATE 25 MG TAB PO SCH ×2 (05:27→21:47)
[2021-12-21] MEDS ORDERED: HEPARIN SODIUM,PORCINE 10,000 UNIT in SODIUM CHLORIDE 0.9% 1,000 ML IRRIGATION PRN (07:00)
[2021-12-21] MEDS ORDERED: HEPARIN SODIUM,PORCINE 2,500 UNIT in SODIUM CHLORIDE 0.9% 250 ML IRRIGATION PRN (07:00)
[2021-12-21] MEDS ORDERED: LIDOCAINE 1% INJ 10MG/ML (20 ML MDV) ONE (07:15)
[2021-12-21] MEDS ORDERED: fentaNYL (PF) 50 MCG/ML 2 ML AMP ONE (07:16)
[2021-12-21] MEDS ORDERED: HEPARIN SODIUM 1,000 UN/ML (10ML VL) ONE (07:16)
[2021-12-21] MEDS ORDERED: VERAPAMIL 2.5 MG/ML 2 ML AMP ONE (07:16)
[2021-12-21] MEDS ORDERED: IV FLUID CONTINUATION 1,000 ML IV ONE (07:30)
[2021-12-21] MEDS ORDERED: fentaNYL (PF) 50 MCG/ML 2 ML AMP IV ONE (07:44)
[2021-12-21] MEDS ORDERED: LIDOCAINE 1% INJ 10MG/ML (20 ML MDV) SQ ONE (07:47)
[2021-12-21] MEDS ORDERED: VERAPAMIL SYRINGE (5 MG/10 ML) INTRAARTER ONE (07:55)
[2021-12-21 08:04] LABS: Calcium 9.1 mg/dL (8.4-10.2); Potassium 4.6 mmol/L (3.5-5.1)
[2021-12-21] MEDS ORDERED: NITROGLYCERIN 1000MCG/10ML SYRINGE INTRACORON ONE (08:10)
[2021-12-21] MEDS ORDERED: IOPAMIDOL-370 125ML BTL INJ ONE (08:34)
[2021-12-21] MEDS ORDERED: ZOLPIDEM 5 MG TAB PO PRN (08:42)
[2021-12-21] MEDS ORDERED: NITROGLYCERIN SL TABS 0.4 MG TAB SUBLINGUAL PRN (08:42)
[2021-12-21] MEDS ORDERED: ATROPINE SULFATE 0.1 MG/ML 10ML SYRINGE IV PRN (08:42)
[2021-12-21] MEDS ORDERED: RX INFO: IV CONTRAST WAS GIVEN 1 EACH MISC MISCELLANE PRN (08:42)
[2021-12-21] MEDS ORDERED: MAG HYDROX/AL HYDROX/SIMETH 30 ML CUP PO PRN (08:42)
[2021-12-21] MEDS ORDERED: SODIUM CHLORIDE 0.9% 1,000 ML in EMPTY BAG 1 BAG IV SCH (08:45)
--- NOTE | 2021-12-21 08:53 | P.CARDCATH ---
Date of Procedure: 12/21/21 Description of Procedure: PERCUTANEOUS TRANSLUMINAL CORONARY ANGIOPLASTY CLINICAL INFORMATION: The patient is a 76-year-old female who presented on Tuesday with non-STEMI, underwent cardiac catheterization and was found to have significant obstructive disease involving the left circumflex, OM as well as we ll as the LAD and the diagonal branch with moderate to significant disease in the RCA. Discussion was made regarding multivessel stenting versus CABG. Patient underwent stenting of her left circumflex and obtuse marginal branch which appear to be the culprit lesion, she is brought in today to undergo stenting of the LAD and diagonal branch. The procedure as well as the risks and the complications were discussed with the patient who is in full understanding and agreement. PROCEDURE: The patient was brought to the lift slab operator in the fasting and semi- sedated state after receiving fentanyl and Benadryl, using Xylocaine anesthesia in the Seldinger technique a 6-[place] sheath was introduced in the left radial artery. A 6 [place] 3.75 EBU guiding catheter was introduced into the system. After cannulating the left main, a 0.014 balanced medium J-wire was advanced across the lesion and positioned distally in the diagonal branch. Following that another 0.014 balanced medium weight J-wire was introduced in the LAD and positioned distally. Following that a 2.5 x 12 mm Treck balloon was advanced and inflation at the maximum of 8 lorne were done the LAD and diagonal branch. Following that a 2.5 x 12 mm Xience ryanne point stent was deployed in the diagonal branch. It was dilated at 12 lorne. Following that 2.5 x 38 millimeter Xience ryanne point stent was positioned in the LAD, deployed and postdilated at 16 lorne. After removing the balloon a 3.25 x 8 mm NC Treck balloon was advanced and one inflation in the proximal segment of the stent was done. After the last inflation, after appropriate wait, the balloon and the guidewire were withdrawn back into the guiding catheter. Images were obtained and repeated. Those images reveal stable successful stenting. At that point, the guiding catheter, the balloon, and guidewire were removed. The sheath was removed. Hemostasis was obtained with deployment of a TR band. There were no immediate complications. The patient was returned to the room in stable condition. Of note, the patient received 5000 units of heparin as well as continued on Plavix. ACT was monitored. She had EKG changes no significant chest pain RESULTS: 1. Successful stenting of the diagonal 1 with reduction of stenosis from 90% to 0 %. 2. Successful stenting of the mid LAD with reduction of the stenosis from 85% to 0%. RECOMMENDATIONS: The patient will be continued on dual antiplatelet treatment, the results and recommendations were discussed with the patient and her family, they are in full an understanding. Duration of sedation 49 minutes.
[2021-12-21] MEDS ORDERED: CHOLECALCIFEROL 25 MCG (1000 IU) TABLET PO SCH (09:00)
[2021-12-21] MEDS: SODIUM CHLORIDE 0.9% 1,000 ML IV SCH (09:01)
--- NOTE | 2021-12-21 10:49 | P.PN ---
Subjective Progress Note Date: 12/21/21 Principal diagnosis: Acute coronary syndrome The patient is a pleasant 76-year-old female patient with hypertension and dyslipidemia who was admitted to the hospital with chest discomfort and ruled in for acute coronary event. She underwent a heart catheterization and stenting of the RCA 2 days ago and earlier today she underwent stenting of the LAD and diagonal. The patient was seen this morning. She remains asymptomatic from a cardiovascular standpoint overview but she remains hemodialysis stable was marginally low blood pressure. She is on dual antiplatelet therapy along with high intensity statin. The echo revealed normal left ventricle systolic function without significant valvular abnormalities. At this point I would continue the current medical regimen and possible discharge in the next 24 hours Objective - Vital Signs Vital signs: Vital Signs Temp 98 F 12/21/21 04:00 Pulse 55 L 12/21/21 09:12 Resp 18 12/21/21 09:12 BP 132/65 12/21/21 09:12 Pulse Ox 96 12/21/21 09:12 Intake & Output 12/20/21 12/21/21 12/21/21 18:59 06:59 18:59 Intake Total 120 780 100 Balance 120 780 100 Weight 71.9 kg Intake: IV 100 Oral 120 780 Other: Voiding Method Toilet Toilet Toilet # Voids 0 1 - Constitutional General appearance: Present: no acute distress - Respiratory Respiratory: bilateral: CTA - Cardiovascular Rhythm: regular Heart sounds: normal: S1, S2 - Labs CBC & Chem 7: 12/19/21 07:55 12/21/21 06:39 Labs: Abnormal Lab Results - Last 24 Hours (Table) 12/21/21 Range/Units 06:39 Sodium 128 L (137-145) mmol/L Carbon Dioxide 20 L (22-30) mmol/L BUN 20 H (7-17) mg/dL Creatinine 1.21 H (0.52-1.04) mg/dL Assessment and Plan Assessment: Assessment #1 acute non-ST deviation myocardial infarction #2 severe triple-vessel CAD #3 hypertension #4 dyslipidemia Plan #1 continue the current medical regimen #2 continue dual antiplatelet therapy #3 possible discharge in the next 24 hours
[2021-12-21] MEDS ORDERED: BENZOCAINE/MENTHOL LOZENG 1 EACH LOZENGE MUCOUS MEM PRN (14:09)
[2021-12-21 14:55] VITALS: BMI 30.9
[2021-12-21] MEDS ORDERED: FAMOTIDINE 20 MG TAB PO SCH (21:00)
[2021-12-21] MEDS: DOCUSATE 100 MG CAP PO SCH (21:42)
[2021-12-22] MEDS: LEVOTHYROXINE 50 MCG TAB PO SCH (05:15)
[2021-12-22 08:17] LABS: Basophils # (A) 0.1 k/uL (0-0.2); Basophils % (A) 1 %; Eosinophils # (A) 0.4 k/uL (0-0.7); Eosinophils % (A) 6 %; HCT 38.1 % (34.0-46.0); HGB 12.7 gm/dL (11.4-16.0); Lymphocytes # (A) 1.9 k/uL (1.0-4.8); Lymphocytes % (A) 28 %; MCH 32.1 pg (25.0-35.0); MCHC 33.3 g/dL (31.0-37.0); MCV 96.3 fL (80.0-100.0); Mean Platelet Volume 7.5; Monocytes # (A) 0.5 k/uL (0-1.0); Monocytes % (A) 7 %; Neutrophils # (A) 3.8 k/uL (1.3-7.7); Neutrophils % (A) 55 %; Platelet Count 268 k/uL (150-450); RBC 3.96 m/uL (3.80-5.40); RDW 12.7 % (11.5-15.5); WBC 6.9 k/uL (3.8-10.6)
[2021-12-22 08:30] LABS: Albumin 3.7 g/dL (3.5-5.0); Calcium 9.2 mg/dL (8.4-10.2); Potassium 5.1 mmol/L (3.5-5.1); Total Bilirubin 0.5 mg/dL (0.2-1.3); Total Protein 6.9 g/dL (6.3-8.2)
[2021-12-22] MEDS: ATORVASTATIN 80 MG TAB PO SCH (09:18)
[2021-12-22] MEDS: METOPROLOL TARTRATE 25 MG TAB PO SCH (09:18)
[2021-12-22] MEDS: ASPIRIN 81 MG PO SCH (09:18)
[2021-12-22] MEDS: amLODIPine 5 MG TAB PO SCH (09:18)
[2021-12-22] MEDS: CLOPIDOGREL 75 MG TAB PO SCH (09:18)
[2021-12-22] MEDS: CALCIUM CARB-VIT D 500 MG-5 MCG TAB PO SCH (09:20)
--- NOTE | 2021-12-22 09:46 | P.PN ---
Subjective Progress Note Date: 12/21/21 This is a pleasant 76 years old female with no significant past medical history who presents because of chest pain. She is a patient of Dr. Bourne She presents with right-sided chest pain radiating to the right shoulder which happened last night, relieved temporarily with antiacids and aspirating however inferiorly morning it recurred about 5-6/10 in severity. Like pressure, associated with some difficulty breathing but no nausea vomiting or diarrhea. No urinary complaints, no headache or weakness or numbness. Patient took 2 tablets of aspirin last night and 1 tablet of 325 mg with EMS. Her chest pain slightly subsided now She denies smoking, alcohol or illicit drugs Vitas looks stable, blood pressure elevated 179/84 and 169/112 Labs show an unremarkable CBC, BMP with slightly elevated creatinine 1.2 which is looks at her baseline of 1.1-1.3. Chest x-ray: Reviewed by myself showing no acute process or cardiomegaly, pending final report -Emergency room patient was started on heparin drip and cardiology team consulted 12/19/2021 Patient is awake and alert, looks comfortable, no more chest pain, she status post post op day #1, she had PCI with stent placement into her left circumflex artery and first obtuse marginal branch. Also she is planned to undergo further stenting to her LAD on Tuesday. We will keep monitoring closely with primer boxer team on the case 12/20/2021 patient here with non-STEMI, her chest pain improved after stent placement in the circumflex and obtuse branch, she still needs another PCI to LAD IV fluids started and check creatinine tomorrow for possible cardiac cath in the morning Creatinine is stable today at baseline of 1.2 12/21/2021 Patient is back from [facility]. Underwent cardiac catheterization and stenting of RCA and LAD and diagonal. Currently denied any complaints of chest pain or discomfort. No shortness of breath. No fever no chills. Denied any cough or sputum production. Currently being continued on dual antiplatelet agents and high intensity statin therapy. 2D echocardiogram showed normal left ventricular systolic function. Patient advised he is tolerating oral diet. No nausea vomiting abdominal pain or diarrhea. Cardiology is on board. Current medications reviewed. Objective - Vital Signs Vital signs: Vital Signs Temp 98.0 F 12/21/21 11:07 Pulse 50 L 12/21/21 14:00 Resp 18 12/21/21 14:00 BP 121/59 12/21/21 11:07 Pulse Ox 92 L 12/21/21 11:07 Intake & Output 12/20/21 12/21/21 12/21/21 18:59 06:59 18:59 Intake Total 120 780 580 Balance 120 780 580 Weight 71.9 kg Intake: IV 100 Oral 120 780 480 Other: Voiding Method Toilet Toilet Toilet # Voids 0 1 2 - Exam - Exam GENERAL: The patient is alert and oriented x3, not in any acute distress. Well developed, well nourished. HEENT: Pupils are round and equally reacting to light. EOMI. No scleral icterus. No conjunctival pallor. Normocephalic, atraumatic. No pharyngeal erythema. No thyromegaly. CARDIOVASCULAR: S1 and S2 present. No murmurs, rubs, or gallops. PULMONARY: Chest is clear to auscultation, no wheezing or crackles. ABDOMEN: Soft, nontender, nondistended, normoactive bowel sounds. No palpable organomegaly. MUSCULOSKELETAL: No joint swelling or deformity. EXTREMITIES: No cyanosis, clubbing, or pedal edema. NEUROLOGICAL: Gross neurological examination did not reveal any focal deficits. SKIN: No rashes. no petechiae. - Labs CBC & Chem 7: 12/22/21 07:34 12/22/21 07:34 Labs: Abnormal Lab Results - Last 24 Hours (Table) 12/21/21 Range/Units 06:39 Sodium 128 L (137-145) mmol/L Carbon Dioxide 20 L (22-30) mmol/L BUN 20 H (7-17) mg/dL Creatinine 1.21 H (0.52-1.04) mg/dL Assessment and Plan Assessment: Assessment: non-STEMI, status post PCI to left circumflex artery and first obtuse marginal branch. Successful stenting of the mid LAD on 12/21 hypertension, new onset CKD stage III, most likely hypertensive nephropathy. Hypovolemic hyponatremia DVT prophylaxis Plan: This is a pleasant 76 years old female who presents with chest pain. Patient underwent cardiac catheterization stent placement 2 cardiology is on board. Cardiology consult Continue with metoprolol 25 mg twice a day as well as aspirin and Plavix. Continue statins. Labs and medication were reviewed. Monitor lytes and vitals. DVT and GI prophylaxis. DVT prophylaxis: Subcutaneous heparin GI Prophylaxis: Pepcid Time with Patient: Greater than 30
[2021-12-22 12:03] VITALS: TEMP 98.3
--- NOTE | 2021-12-22 15:17 | P.PN ---
Subjective HISTORY OF PRESENTING ILLNESS This is a pleasant 76-year-old female past medical history significant for hypothyroidism, GERD, bilateral feet chilblains, osteopenia. 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 We have been asked to see in consultation for NSTEMI. Patient presents to the ER with chest discomfort. Patient underwent cardiac catheterization 12/18/[address] Fernandez and underwent successful stenting of the proximal left circumflex and first obtuse marginal branch. 12/21/2021 patient underwent successful stenting of diagonal 1 and mid LAD. Patient seen and examined at bedside, no acute distress. Denies any chest pain or shortness of breath. Radial Cardiac cath site, clean, dry, intact, no hematoma, 2+ pulses. Patient's vital signs are stable. Labs reviewed, sodium 129, potassium 5.1, BUN 17, serum creatinine 1.1. Patient is currently maintained on aspirin 81 mg daily, atorvastatin 80 mg daily, Plavix 75 mg daily, metoprolol tartrate 25 mg twice a day Echocardiogram revealed a normal LV function 5560 percent, moderate to severe mitral regurgitation GENERAL: Well-appearing, well-nourished and in no acute distress. NECK: Supple without JVD or thyromegaly. LUNGS: Breath sounds clear to auscultation bilaterally. Respiration equal and unlabored. No wheezes, rales or rhonchi. HEART: Regular rate and rhythm systolic ejection murmur, no rubs or gallops. S1 and S2 heard. EXTREMITIES: Normal range of motion, no edema. No clubbing or cyanosis. Peripheral pulses intact. ASSESSMENT NSTEMI s/p PCI to proximal left circumflex and first obtuse marginal branch, diagonal 1 and mid LAD. Hypertension History of GERD History of hypothyroidism PLAN From a cardiology perspective, patient stable for discharged home. Continue dual antiplatelet therapy with aspirin and Plavix, continue statin and beta stacy Follow up with Dr. Adamson in one week Nurse Practitioner note has been reviewed, I agree with a documented findings and plan of care. Patient was seen and examined. Objective - Vital Signs Vital signs: Vital Signs Temp 98.3 F 12/22/21 12:00 Pulse 48 L 12/22/21 14:00 Resp 16 12/22/21 14:00 BP 161/77 12/22/21 12:00 Pulse Ox 98 12/22/21 12:00 Intake & Output 12/21/21 12/22/2112/22/22 18:59 06:59 18:59 Intake Total 698 660 Balance 698 660 Weight 71.9 kg Intake: IV 100 Oral 598 660 Other: Voiding Method Toilet Toilet Toilet # Voids 2 1 1 - Labs CBC & Chem 7: 12/22/21 07:34 12/22/21 07:34 Labs: Abnormal Lab Results - Last 24 Hours (Table) 12/22/21 Range/Units 07:34 Sodium 129 L (137-145) mmol/L Creatinine 1.16 H (0.52-1.04) mg/dL
[2021-12-22 15:36] VITALS: BP 100/50; PULSE 55; RESP 18
== END 2021-12-22 16:52 | disposition home or self-care (01) | DRG 246 ==
LOC: EC 07:01 → 3SCARD 08:59
PROVIDERS: ADMIT Internal Medicine; ATTEND Internal Medicine
PROC: 027035Z Dilation of Coronary Artery, One Artery with Two Drug-eluting Intraluminal Devices, Percutaneous Approach (ICD-10-PCS; principal; 2021-12-18 16:55)
PROC: 4A023N7 Measurement of Cardiac Sampling and Pressure, Left Heart, Percutaneous Approach (ICD-10-PCS; 2021-12-18 16:55)
PROC: B2111ZZ Fluoroscopy of Multiple Coronary Arteries using Low Osmolar Contrast (ICD-10-PCS; 2021-12-18 16:55)
PROC: 027135Z Dilation of Coronary Artery, Two Arteries with Two Drug-eluting Intraluminal Devices, Percutaneous Approach (ICD-10-PCS; 2021-12-21 10:30)
DX: I21.4 Non-ST elevation (NSTEMI) myocardial infarction (principal); E87.1 Hypo-osmolality and hyponatremia; I12.9 Hypertensive chronic kidney disease with stage 1 through stage 4 chronic kidney disease, or unspecified chronic kidney disease; N18.30 Chronic kidney disease, stage 3 unspecified; E86.1 Hypovolemia; I25.10 Atherosclerotic heart disease of native coronary artery without angina pectoris; I34.0 Nonrheumatic mitral (valve) insufficiency; E78.5 Hyperlipidemia, unspecified; E03.9 Hypothyroidism, unspecified; K21.9 Gastro-esophageal reflux disease without esophagitis; M85.80 Other specified disorders of bone density and structure, unspecified site; T69.1XXA Chilblains, initial encounter; Z79.1 Long term (current) use of non-steroidal anti-inflammatories (NSAID); Z79.890 Hormone replacement therapy; Z79.899 Other long term (current) drug therapy; Z82.49 Family history of ischemic heart disease and other diseases of the circulatory system
CPT/HCPCS: 36415; 71046; 80048; 80053; 83735; 84484; 85025; 85610; 85730; 93005; 93306; 93458; 94760; 96374; 99285

== ENCOUNTER → 2022-05-04 | Outpatient (CLI) | payer MEDICARE ==
--- NOTE | 2022-05-04 15:47 | BD ---
EXAMINATION TYPE: Axial Bone Density DATE OF EXAM: 05/04/2022 COMPARISON: 06/02/2015 CLINICAL HISTORY: 76 years year old Female. ICD-10 CODE: Z78.0 MENOPAUSAL W/O HRT Height: 58 IN Weight: 154 LBS FRAX RISK QUESTIONS: Family History (Parent hip fracture): YES MOTHER RISK FACTORS HISTORY OF: Active: MODERATE Diet low in dairy products/other sources of calcium: YES Postmenopausal woman: AGE 52 Take estrogen and/or progesterone medications: NOT NOW How long: CONTROL 15 YEARS Lost more than 2 inches in height since high school: YES 6" MEDICATIONS: Thyroid Medications: YES Which medication: Levothyroxine How Lon+ YEARS Additional Medications: CALCIUM, LEVOTHYROXINE, PLAVIX, METOPROLOL, BLOOD PRESSURE MEDS, STOMACH MEDS ,LIPITOR, EXAM MEASUREMENTS: Bone mineral densitometry was performed using the [facility]. Bone mineral density as measured about the Lumbar spine is: ----- L1-L4(G/cm2): 1.335 T Score Values are as follows: ----- L1: 0.5 ----- L2: 2.7 ----- L3: 1.8 ----- L4: 0.8 ----- L1-L4: 1.3 Bone mineral density has: Decreased -1.0% since study of: 06/02/2015 Bone mineral density about the R hip (g/cm2): 0.821 Bone mineral density about the L hip (g/cm2): 0.799 T Score values are as follows: -----R Neck: -1.6 -----L Neck: -1.7 -----R Total: -0.9 -----L Total: -1.4 Bone mineral density has: Increased 1.3% since study of: 06/02/2015 FRAX%s: The graph provided illustrates a 23.6 chance for a major osteoporotic fx and a 13.6 chance fo r the hips probability for fx in 10 years time. IMPRESSION: Osteopenia (T Score between -2.5 and -1). There is slightly increased risk of fracture and the patient may be considered for treatment. Re-Screen 2-5 years. NOTE: T-SCORE=SD OF THE YOUNG ADULT MEAN.
--- NOTE | 2022-05-05 17:09 | MM ---
Reason for Exam: Screening (asymptomatic). Last mammogram was performed 1 year(s) and 9 month(s) ago. Patient History: Menarche at age 11. First Full-Term at age 18. Postmenopausal. Patient has history of breast feeding. Estrogen for 6 months from age 48 until age 48. Benign Excisional Biopsy on the right side. Daughter had breast cancer, age 54. Risk Values: Katty 5 year model risk: 3.9%. NCI Lifetime model risk: 6.9%. Prior Study Comparison: 06/02/2015 Bilateral Screening Mammogram, [facility]. 08/06/2016 Bilateral Screening Mammogram, [facility]. 09/18/2018 Bilateral Screening Mammogram, [facility]. 07/11/2020 Bilateral Screening Mammogram, [facility]. Tissue Density: There are scattered fibroglandular densities. Findings: Analyzed By CAD. There is no suspicious group of microcalcifications or new suspicious mass in either breast. Stable benign calcifications. Chronic nodularity in the right breast is stable. Overall Assessment: Benign, BI-RAD 2 Management: Screening Mammogram of both breasts in 1 year. A clinical breast exam by your physician is recommended on an annual basis and results should be correlated with mammographic findings. Electronically signed and approved by: Yeyo Hansen D.O.
== END | disposition home or self-care (01) ==
LOC: RADMAMWWP 13:44
PROVIDERS: ATTEND Family Medicine
DX: Z12.31 Encounter for screening mammogram for malignant neoplasm of breast (principal); M85.89 Other specified disorders of bone density and structure, multiple sites; Z78.0 Asymptomatic menopausal state; Z80.3 Family history of malignant neoplasm of breast
CPT/HCPCS: 77063; 77067; 77080

== ENCOUNTER → 2023-02-21 | Outpatient (CLI) | payer MEDICARE ==
--- NOTE | 2023-02-21 09:38 | US ---
EXAMINATION TYPE: US abdomen complete DATE OF EXAM: 02/21/2023 COMPARISON: NONE CLINICAL INDICATION: Female, 77 years old with history of R10.811 RIGHT UPPER QUADRANT ABDOMINAL TEND ERNESS; Patient states abnormal labs. TECHNIQUE: Multiple sonographic images of the abdomen are obtained. FINDINGS: EXAM MEASUREMENTS: Liver Length: 11.7 cm Gallbladder Wall: 0.2 cm CBD: 0.5 cm Spleen: 7.7 cm Right Kidney: 8.7 x 3.2 x 2.8 cm Left Kidney: 10.1 x 3.1 x 3.7 cm Pancreas: Head and tail obscured by overlying bowel gas Liver: wnl Gallbladder: No stones seen Evidence for sonographic Doyle's sign: Neg CBD: wnl Spleen: wnl Right Kidney: No hydronephrosis or masses seen. Appears smaller than contralateral image. Left Kidney: No hydronephrosis or masses seen Upper IVC: wnl Abd Aorta: No AAA visualized at time of scan. The liver is homogenous. The intrahepatic portion of the IVC and proximal abdominal aorta are within normal limits. There is no evidence of cholelithiasis. Common bile duct is unremarkable. The visu alized portions of the pancreas are homogenous. The spleen is unremarkable. Kidneys are symmetric a nd free of hydronephrosis. No renal lesions are seen. IMPRESSION: No significant abnormality seen.
== END | disposition home or self-care (01) ==
LOC: RADUSWWP 08:32
PROVIDERS: ATTEND Family Medicine
DX: R10.811 Right upper quadrant abdominal tenderness (principal); R79.9 Abnormal finding of blood chemistry, unspecified
CPT/HCPCS: 76700